=== PATIENT | female | born 1985 | race Caucasian/White ===

== ENCOUNTER 2018-03-19 09:13 | Emergency (ER) | payer OTHER ==
[2018-03-19 09:45] VITALS: BP 134/78
[2018-03-19] MEDS ORDERED: Ibuprofen TAB* 600 MG PO ONE (09:54)
--- NOTE | 2018-03-19 10:31 | RAD ---
Indication: Severe tailbone pain with progression for one month and particularly over the past 24 hours. Comparison: No relevant prior exams available on the [facility] for comparison. Technique: AP and lateral views sacrum and coccyx. Report: No sacrococcygeal fracture or focal osseous lesion evident. Normal articular alignment throughout the [id number]. IUD in place. The uterus appears retroverted. Pelvic phleboliths noted. Unremarkable soft tissue contours. IMPRESSION: Negative radiographic exam of the sacrum and coccyx.
--- NOTE | 2018-03-19 12:20 | UC ---
Yady West Tenzin, scribed for Hilario Buckley MD on 03/19/18 at 0952 . Hip/Pelvis Pain - HPI Summary HPI Summary: Pt is a 32 years old female presenting to the [facility] complaining of intense pain in her tail bone that got worse recently prompting her to visit the [facility] today. She reports that the pain has been there for a month but has been waxing and waning. She rates the pain at 8.5/10 in severity and describes it as aching but periodically sharp. She notes that sitting, standing up and touching aggravates the pain. Ice helped alleviate the pain. She is not taking any medications for the pain currently. 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 - History Of Current Complaint Stated Complaint: TAILBONE PAIN Hx Obtained From: Patient Hx Last Menstrual Period: IUD Onset/Duration: Lasting Weeks - Pain has been present for a month but has been waxing and waning. Severity Initially: Moderate Severity Currently: Severe Pain Intensity: 9 Pain Scale Used: 0-10 Numeric Location: Discrete At: - Tail bone Character Of Pain: Sharp, Aching Aggravating Factor(s): Other - Sitting, standing or if her tail bone is touching anything. Alleviating Factor(s): Other - Ice - Allergies/Home Medications Allergies/Adverse Reactions: Allergies Allergy/AdvReac Type Severity Reaction Status Date / Time marijuana Allergy Anaphylatic Verified 03/19/18 09:39 Shock minocycline Allergy Hives Verified 03/19/18 09:39 Home Medications: Home Medications Levonorgestrel (Iud) [Mirena IUD] 1 applic IU ONCE 03/19/18 [History Confirmed 03/19/18] PMH/Surg Hx/FS Hx/Imm Hx - Additional Past Medical History Additional PMH: Negative: Cardiac disease, CVA. - Surgical History Surgical History: None - Family History Known Family History: Positive: Other - mother had ovarian cancer. - Social History Alcohol Use: Weekly Substance Use Type: None Smoking Status (MU): Never Smoked Tobacco Review of Systems Constitutional: Negative Skin: Negative Eyes: Negative ENT: Negative Respiratory: Negative Cardiovascular: Negative Gastrointestinal: Negative Genitourinary: Negative Motor: Negative Neurovascular: Negative Musculoskeletal: Other: - Tail bone pain. Neurological: Negative Psychological: Negative All Other Systems Reviewed And Are Negative: Yes Physical Exam - Summary Physical Exam Summary: General: well-appearing, no pain distress Skin: warm, color reflects adequate perfusion, dry Head: normal Eyes: EOMI, TAMMY ENT: normal Neck: supple, nontender Respiratory: CTA, breath sounds present Cardiovascular: RRR Abdomen: soft, nontender Bowel: present Musculoskeletal: normal, strength/ROM intact Neurological: sensory/motor intact, A&O x3 Psychological: effect/mood appropriate Pelvic exam ([employer] Salesperson was present):Low back and sacrum is non-tender, Coccyx is tender, no swelling or erythema. Her anus is normal. Triage Information Reviewed: Yes Vital Signs: Initial Vital Signs Temp 98.2 F 03/19/18 09:40 Pulse 87 03/19/18 09:40 Resp 16 03/19/18 09:40 BP 134/78 03/19/18 09:40 Pulse Ox 100 03/19/18 09:40 Vital Signs Reviewed: Yes Diagnostics - Radiology Sacrum/Coccyx X Ray Xray Interpretation: No Acute Changes Radiology Interpretation Completed By: Radiologist - IMPRESSION: Negative radiographic exam of the sacrum and coccyx. Dr. Buckley reviewed the report. Hip Injury Course/Dx - Course Course Of Treatment: ON EXAM, NO SWELLING OR ERYTHEMA. NO SIGNS OF INFECTION. NO PELVIC/ABD PAIN. WILL TREAT COCCYX CONTUSION. F/U WITH PMD IF NOT IMRROVED; RECHECK SOONER IF WORSE. - Differential Dx/Diagnosis Provider Diagnoses: COCCYX PAIN Discharge - Sign-Out/Discharge Documenting (check all that apply): Discharge/Admit/Transfer - Discharge Plan Condition: Stable Disposition: HOME Patient Education Materials: Coccyx Injury (ED) Referrals: [facility] [place] [facility] REFERRAL [Outside] Additional Instructions: FOLLOW UP WITH YOUR DOCTOR IF NOT COMPLETELY IMPROVED. USE A DONUT PILLOW TO AVOID PRESSURE ON THE AREA. TAKE IBUPROFEN 600MG EVERY 6 HOURS NEEDED. GET RECHECKED FOR ANY WORSENING OF YOUR CONDITION; PAIN, SWELLING, FEVER, YOU FEEL ILL, ABDOMINAL/PELVIC PAIN OR QUESTIONS OR CONCERNS. - Billing Disposition and Condition Condition: STABLE Disposition: Home The documentation as recorded by the Yady alba Tenzin accurately reflects the service I personally performed and the decisions made by me, Hilario Buckley MD.
== END 2018-03-19 11:17 | disposition home or self-care (01) ==
LOC: UCEAST 09:13
DX: M53.3 Sacrococcygeal disorders, not elsewhere classified (principal); Z88.1 Allergy status to other antibiotic agents; Z86.59 Personal history of other mental and behavioral disorders; Z80.41 Family history of malignant neoplasm of ovary
CPT/HCPCS: 72220; 99202; A9270-GY; G0463

== ENCOUNTER 2019-02-14 18:14 | Emergency (ER) | payer OTHER ==
[2019-02-14] MEDS ORDERED: Tetan/Diph/Pertus SYR(Tdap)* 0.5 ML SYR(BOOSTRIX) use SYR IM ONE (20:24)
--- NOTE | 2019-02-14 20:25 | ED ---
Head Injury - HPI Summary HPI Summary: 33-year-old female presents with head injury today. She states she dropped a tool used to put a fence post on her head. States she has laceration to her scalp. area is not actively bleeding. She denies loss consciousness. She states has a mild headache. No nausea or vomiting. No dizziness. Denies any confusion. No neck pain. No other injury. Denies any difficulties concentrating. - History Of Current Complaint Chief Complaint: EDHeadInjury Stated Complaint: HIT MYSELF IN THE HEAD, BLEEDING PER PT Time Seen by Provider: 02/14/19 19:59 Hx Last Menstrual Period: IUD Pain Intensity: 3 - Allergies/Home Medications Allergies/Adverse Reactions: Allergies Allergy/AdvReac Type Severity Reaction Status Date / Time marijuana Allergy Anaphylatic Verified 02/14/19 18:19 Shock minocycline Allergy Hives Verified 02/14/19 18:19 PMH/Surg Hx/FS Hx/Imm Hx Endocrine/Hematology History: Denies: Hx Anticoagulant Therapy Respiratory History: Denies: Hx Asthma Infectious Disease History: No Infectious Disease History: Denies: Traveled Outside the [place] in Last 30 Days - Family History Known Family History: Positive: Other - mother had ovarian cancer. - Social History Alcohol Use: Weekly Substance Use Type: Reports: None Smoking Status (MU): Never Smoked Tobacco Review of Systems Negative: Fever Negative: Chest Pain Negative: Shortness Of Breath Negative: Vomiting, Nausea Positive: Other - scalp laceration Positive: Headache All Other Systems Reviewed And Are Negative: Yes Physical Exam Triage Information Reviewed: Yes Vital Signs On Initial Exam: Initial Vitals Temp Pulse Resp BP Pulse Ox 97.9 F 80 16 138/92 99 02/14/19 18:20 02/14/19 18:20 02/14/19 18:20 02/14/19 18:20 02/14/19 18:20 Vital Signs Reviewed: Yes Appearance: Positive: Well-Appearing Skin: Positive: Warm, Dry, Other - 3cm superficial laceration to scalp Head/Face: Positive: Normal Head/Face Inspection, Other - no step off, racoon eyes, garcia sign, Eyes: Positive: Normal, EOMI, TAMMY, Conjunctiva Clear ENT: Positive: Normal ENT inspection, Pharynx normal, TMs normal Neck: Positive: Other: - nontender neck, full ROM neck Respiratory/Lung Sounds: Positive: Clear to Auscultation, Breath Sounds Present Cardiovascular: Positive: Normal, RRR Musculoskeletal: Positive: Normal Neurological: Positive: Sensory/Motor Intact, Alert, Oriented to Person Place, Time, CN Intact II-III Psychiatric: Positive: Normal Procedures - Laceration/Wound Repair 1 Location: Other - head Description: Linear Length, Depth and Shape: 3cm superficial Irrigated w/ Saline (ccs): 100 Laceration/Wound Explored: no foreign body removed Closure: [place] #__ - 3 Diagnostics - Vital Signs Vital Signs Temp Pulse Resp BP Pulse Ox 02/14/19 18:20 97.9 F 80 16 138/92 99 - Laboratory Lab Statement: Any lab studies that have been ordered have been reviewed, and results considered in the medical decision making process. Head Injury Course/Dx Course Of Treatment: 33-year-old female presents with head injury today. She states she dropped a tool used to put a fence post on her head. States she has laceration to her scalp. area is not actively bleeding. She denies loss consciousness. She states has a mild headache. No nausea or vomiting. No dizziness. Denies any confusion. No neck pain. No other injury. Denies any difficulties concentrating. On exam has 3 cm superficial laceration to scalp noted. No contusion noted. Normal neuro exam. Offered to do a CT with trauma first observation and patient decided to observe. Told to develop if worsening headache or vomiting to return. Cleaned laceration and place 3 ladan. Patient understands agrees with plan.. - Diagnoses Differential Diagnosis/HQI/PQRI: Concussion Without LOC, Contusion, Laceration Provider Diagnoses: Head injury, Scalp laceration Discharge - Sign-Out/Discharge Documenting (check all that apply): Patient Departure Patient Received Moderate/Deep Sedation with Procedure: No - Discharge Plan Condition: Good Disposition: HOME Patient Education Materials: Head Injury (ED), Staple Care (ED) Referrals: No Primary Care Phys,NOPCP [Primary Care Provider] - Additional Instructions: Take Tylenol or ibuprofen for pain every 6 hours as needed Do not scrub staple area Return to ED, urgent care or primary in 7 days to have ladan removed establish care with primary Modify activities as tolerated Return to ED if develop vomiting, severe headache or any new or worsening symptoms - Billing Disposition and Condition Condition: GOOD Disposition: Home
[2019-02-14 20:40] VITALS: BP 130/80
== END 2019-02-14 20:45 | disposition home or self-care (01) ==
LOC: ED 18:14
DX: S01.01XA Laceration without foreign body of scalp, initial encounter (principal); W20.8XXA Other cause of strike by thrown, projected or falling object, initial encounter; Z88.8 Allergy status to other drugs, medicaments and biological substances
CPT/HCPCS: 12002; 90471; 90715; 99282

== ENCOUNTER 2019-02-21 14:32 | Emergency (ER) | payer OTHER ==
[2019-02-21 14:45] VITALS: BP 110/75
--- NOTE | 2019-02-21 14:58 | UC ---
Skin Complaint HPI - HPI Summary HPI Summary: 33 -year-old female here for removal of 3 ladan in her head. One week ago she was using a post digger when it fell onto the top of her head causing a laceration. She had 3 ladan placed. She went to the emergency room for treatment however had no loss of consciousness and no other problems therefore the laceration was stapled but no head CT was warranted according to the patient. She has had intermittent headaches throughout the week and nausea but no vomiting. No change in her normal mental status and no weakness. - History of Current Complaint Chief Complaint: UCHeadInjury Time Seen by Provider: 02/21/19 14:42 Stated Complaint: STAPLE REMOVAL Hx Obtained From: Patient Hx Last Menstrual Period: unk, has IUD ?: No Onset/Duration: Sudden Onset Skin Exposure Onset/Duration: Days Ago - patient sustained a laceration one week ago to the top of her head. Some consciousness. Onset Severity: Mild Current Severity: Mild Pain Intensity: 0 Location: Other - Top of head, area has been healing without difficulty. - Allergy/Home Medications Allergies/Adverse Reactions: Allergies Allergy/AdvReac Type Severity Reaction Status Date / Time marijuana Allergy Anaphylatic Verified 02/21/19 14:45 Shock minocycline Allergy Hives Verified 02/21/19 14:45 PMH/Surg Hx/FS Hx/Imm Hx Previously Healthy: Yes Other History Of: Negative For: Anticoagulant Therapy - Surgical History Surgical History: None - Family History Known Family History: Positive: Other - mother had ovarian cancer. - Social History Alcohol Use: Weekly Substance Use Type: None Smoking Status (MU): Never Smoked Tobacco Review of Systems All Other Systems Reviewed And Are Negative: Yes Eyes: Negative: Blurred Vision, Diplopia Gastrointestinal: Positive: Nausea - Intermittent nausea throughout the week. Motor: Positive: Negative Neurovascular: Positive: Negative Musculoskeletal: Positive: Negative Neurological: Positive: Headache - Intermittent headaches this week but not the worst headache she's ever had.. Negative: Weakness, Paresthesia, Numbness Is Patient Immunocompromised?: No Physical Exam Triage Information Reviewed: Yes Appearance: Well-Appearing, No Pain Distress, Well-Nourished Vital Signs: Initial Vital Signs Temp 98 F 02/21/19 14:42 Pulse 76 02/21/19 14:42 Resp 15 02/21/19 14:42 BP 110/75 02/21/19 14:42 Pulse Ox 100 02/21/19 14:42 Vital Signs Reviewed: Yes Eyes: Positive: Conjunctiva Clear - PERRLA, EOMI ENT: Positive: Hearing grossly normal, Pharynx normal, TMs normal, Uvula midline Neck exam: Normal Neck: Positive: Supple, Nontender, No Lymphadenopathy Respiratory: Positive: Lungs clear, Normal breath sounds, No respiratory distress, No accessory muscle use Cardiovascular: Positive: RRR, No Murmur, Pulses Normal, Brisk Capillary Refill Abdomen Description: Positive: Nontender, No Organomegaly, Soft Bowel Sounds: Positive: Present Musculoskeletal Exam: Normal Musculoskeletal: Positive: Strength Intact, ROM Intact - Good peripheral pulses neuro sensation capillary refill, good arm and leg strength against resistance. Neurological: Positive: Alert, Muscle Tone Normal - Cranial nerves II through XII are intact, normal dystidiokinesis, good [id number] bilaterally, Romberg is negative, good [id number] bilaterally, good heel-to-toe forward and backward, negative eye drift. Psychological Exam: Normal Skin Exam: Normal Course/Dx - Course Course Of Treatment: The 3 ladan to the top of her head were removed without difficulty. Because the patient has been experiencing intermittent headaches and nausea throughout the week I'm going to do a CT of the brain. CT Brain: FINDINGS: The ventricles, cisterns and sulci are within normal limits. The nash-white matter differentiation is adequately maintained and there is no sulcal effacement. No significant focal abnormality or mass effect is present. There is no evidence for intracranial hemorrhage. No significant focal osseous abnormality is present. The visualized portion of the paranasal sinuses appear clear. The mastoid air cells are well aerated bilaterally. IMPRESSION: Normal CT of the brain. - Diagnoses Provider Diagnosis: Post concussion syndrome Discharge - Sign-Out/Discharge Documenting (check all that apply): Patient Departure All imaging exams completed and their final reports reviewed: Yes - Discharge Plan Condition: Fair Disposition: HOME Patient Education Materials: Post Concussion Syndrome (ED) Referrals: No Primary Care Phys,NOPCP [Primary Care Provider] - [facility] [Outside] Additional Instructions: Definite follow-up with your primary care provider or with the [facility] if no improvement over the next 4 or 5 days. Go to the emergency room if you have any change in her normal mental status, vomiting or worsening headache, or any weakness in your extremities. - Billing Disposition and Condition Condition: FAIR Disposition: Home
== END 2019-02-21 15:54 | disposition home or self-care (01) ==
LOC: UCEAST 14:32
DX: G44.309 Post-traumatic headache, unspecified, not intractable (principal); F07.81 Postconcussional syndrome; R11.0 Nausea; S01.91XD Laceration without foreign body of unspecified part of head, subsequent encounter; W22.8XXD Striking against or struck by other objects, subsequent encounter; Z88.1 Allergy status to other antibiotic agents; Z91.048 Other nonmedicinal substance allergy status
CPT/HCPCS: 70450; 99212; G0463